=== PATIENT | male | born 1930 | race Caucasian/White ===

== ENCOUNTER 2018-01-17 09:52 | Emergency (ER) | payer MEDICARE ==
--- NOTE | 2018-01-17 12:17 | UC ---
Back Pain HPI - HPI Summary HPI Summary: 87 y/o male presents to the urgent care accompany by daughter c/o tail bone pain for the past year. Pt has Hx back surgery discectomy many years ago at vertebra L3-L4. He also has falling several times last years w/o any major problem. However he feel lower back is worsen specially when stand up or walks. Pain is 8/10 w/o any radiation today. He took an Advil PO about 1 hrs ago to alleviate symptoms. Pt denies fever, urinary symptoms, saddle anesthesia, urinary or fecal incontinence, numbness or tingling sensation over the lower extremities, SOB, palpitation, chest pain, abdominal pain, N/V/D. - History of Current Complaint Chief Complaint: UCBackPain Stated Complaint: LOWER BACK PAIN Time Seen by Provider: 01/17/18 12:15 Hx Obtained From: Patient, Family/[employer]aste[employer] Manager - daughter Onset/Duration: Gradual Onset, Lasting Weeks - 1 year, Still Present, Worse Since - last month Timing: Intermittent, Lasting Seconds Severity Initially: Mild Severity Currently: Moderate Pain Intensity: 8 Pain Scale Used: 0-10 Numeric Back Pain: Is Discrete @ - lower back Character: Dull, Spasmodic Aggravating Factor(s): Movement, Lifting, Bending, Walking Alleviating Factor(s): Rest, OTC Meds Associated Signs And Symptoms: Positive: Negative. Negative: Fever, Weakness, Numbness, Tingling, Abdominal Pain, Flank Pain, Bladder Incontinence, Bowel Incontinence, Weight Loss, Pain with Weight Bearing - Risk Factors AAA Risk Factors: Negative TAD Risk Factors: Negative Epidural Abscess Risk Factors: Negative - Allergies/Home Medications Allergies/Adverse Reactions: Allergies Allergy/AdvReac Type Severity Reaction Status Date / Time Penicillins Allergy Unknown Verified 01/17/18 12:15 Reaction Details Home Medications: Home Medications Allopurinol [Zyloprim 300 MG TAB] 300 mg PO DAILY 01/17/18 [History Confirmed ] Bisacodyl [Correctol] 5 mg PO DAILY 01/17/18 [History Confirmed 01/17/18] Finasteride [Proscar] 5 mg PO DAILY 01/17/18 [History Confirmed 01/17/18] Pantoprazole Sodium [Protonix] 40 mg PO DAILY 01/17/18 [History Confirmed ] Tamsulosin CAP* [Flomax CAP*] 0.4 mg PO DAILY 01/17/18 [History Confirmed ] Torsemide 10 mg PO DAILY 01/17/18 [History Confirmed 01/17/18] Venlafaxine CAP (NF) [Effexor CAP (NF)] 75 mg PO DAILY 01/17/18 [History Confirmed 01/17/18] PMH/Surg Hx/FS Hx/Imm Hx Previously Healthy: Yes Other Endocrine History: GOUT Cardiovascular History: Hypertension Other GI/ History: BPH - Surgical History Surgical History: Yes Surgery Procedure, Year, and Place: RIGHT LEG AMPUTATION. LUMBAR 3-4 DISCECTOMY. KIDNEY STONES X2 - Family History Known Family History: Positive: Hypertension, Diabetes - Social History Occupation: Retired Lives: With Family Alcohol Use: None Substance Use Type: None Smoking Status (MU): Former Smoker Have You Smoked in the Last Year: No Review of Systems Constitutional: Negative Skin: Negative Eyes: Negative ENT: Negative Respiratory: Negative Cardiovascular: Negative Gastrointestinal: Negative Genitourinary: Negative Motor: Negative Neurovascular: Negative Musculoskeletal: Decreased ROM - lower back, Other: - acute lower back pain and tailbone pain Neurological: Negative Psychological: Negative Is Patient Immunocompromised?: No All Other Systems Reviewed And Are Negative: Yes Physical Exam - Summary Physical Exam Summary: Vital Signs Reviewed: Yes Appearance: Well-Appearing, Well-Nourished, obese old male sitting in the wheel chair w/o any apparent distress. Eyes: Positive: Conjunctiva Clear - PERRLA, EOMI. ENT: Positive: Normal ENT inspection, Hearing grossly normal, Pharynx normal, TMs normal, Uvula midline Neck: Positive: Supple, Nontender, No Lymphadenopathy Respiratory: Positive: Chest non-tender, Lungs clear, Normal breath sounds, No respiratory distress Cardiovascular: Positive: RRR, No Murmur, Pulses Normal, Brisk Capillary Refill Abdomen Description: Positive: Nontender, No Organomegaly, Soft. Negative: CVA Tenderness (R), CVA Tenderness (L) Bowel Sounds: Positive: Present Musculoskeletal: Positive: Strength Intact, BACK: Patient can stand up and walk some step w/ help. Pt able to bear weight. No signs of trauma, No masses palpated. back scar at the level of L3-S1. Point tenderness at the level of L5- S1, No CVAT, no flank ecchymosis . No sacroiliac notch or coccyx tenderness on palpation, No saddle anesthesia.ROM: limited due to pain, Straight Leg Raise: positive. Patellar reflexes: brisk, symmetric Muscle strength lower extremities. No calf tenderness. Dorsiflexion/ plantar flexion of ankles. Lower extremities: Femoral, popliteal, posterior tibial, and dorsalis pedis pulses WNL. Pt refuse rectal exam Neurological: Positive: Alert, Muscle Tone Normal Psychological Exam: Normal Skin Exam: Normal Triage Information Reviewed: Yes Vital Signs: Initial Vital Signs Temp 97.8 F 01/17/18 12:08 Pulse 69 01/17/18 12:08 Resp 18 01/17/18 12:08 BP 128/65 01/17/18 12:08 Pulse Ox 98 01/17/18 12:08 Back Pain Course/Dx - Course Course Of Treatment: 87 y/o male presents to the urgent care accompany by daughter c/o tail bone pain for the past year. Pt has Hx back surgery discectomy many years ago at vertebra L3-L4. He also has falling several times last years w/o any major problem. However he feel lower back is worsen specially when stand up or walks. Pain is 8/10 w/o any radiation today. He took an Advil PO about 1 hrs ago to alleviate symptoms. Pt denies fever, urinary symptoms, saddle anesthesia, urinary or fecal incontinence, numbness or tingling sensation over the lower extremities, SOB, palpitation, chest pain, abdominal pain, N/V/D. Hx obtained.Lumbosacral X-ray ordered, Impression: Osteopenia, mild compression L2-L3 and T12 vertebra which is age intertermine. Multiple degenerative disc disease observed. Pt's symptoms discussed w/ DR Zhang since I think Pt may need a Lumbat CT. Dr Zhang there is not need for CT since Pt is asymptomatic. he reocommended Pain medication F/u w/ Orthopedic or Neurosurgeon for further evaluation and Tx. Pt and Daughter expalined and educated on Pt's X-ray results and the need for further work up. Pt Rx Prednisone PO take dose, and [place] PO. Patient was instructed to the f/u with orthopedic DR Mazariegos or Neurosurgeon Dr Caceres in 2-3 days. Daughter and Patient understands and agrees. All questions were answered at patient satisfaction. Pt left clinic hemodynamically stable. - Differential Dx/Diagnosis Differential Diagnosis/HQI/PQRI: Cauda Equina Syndrome, Compressive Cord Syndrome, Renal Colic, Strain, Sprain Provider Diagnoses: 1- Acute lower back pain. 2- Mild Vertebral compressure of L3-L2 and T12. 3- Degenerative disc disease Discharge - Sign-Out/Discharge Documenting (check all that apply): Discharge/Admit/Transfer - D/C home - Discharge Plan Condition: Stable Disposition: HOME Prescriptions: HYDROcodone/ACETAMIN 5-325 MG* [[place] 5-325 TAB*] 1 tab PO Q6H PRN #12 tab MDD 1g/4g/day PRN Reason: Pain predniSONE TAB* [Deltasone 20 MG TAB*] 20 mg PO DAILY #11 tab Patient Education Materials: Vertebral Compression Fracture (ED), Back Pain (ED ), Degenerative Disc Disease (ED) Referrals: Simeon Mazariegos MD [Medical Doctor] - 2 Days Alida Sow MD [Primary Care Provider] - 2 Days Savannah Caceres MD [Medical Doctor] - 1 Week Additional Instructions: 1- Please take [place] PO as directed after meals for pain. 2- Take Prednisone PO as directed to alleviate inflammation. 3- Please buy a floating donut for cushion to alleviate tailbone pain.. Pleas encourage fall precautions measures.. 4- Please follow up with your PCP for further pain management and treatment. F/U w/ DR Mazariegos or Neurosurgeon DR Landers for further management on compression fracture. - Billing Disposition and Condition Condition: STABLE Disposition: Home
--- NOTE | 2018-01-17 12:58 | RAD ---
Indication: Low back pain. Fall. 5 views of lumbar spine demonstrates osteopenia. There is mild compression of the L3, L2 vertebra as well as the T12 vertebra. Age of this is undetermined. Disc space narrowing at L3-L4, L4-L5 and L5-S1 with osteophyte formation. IMPRESSION: Osteopenia. Mild compression of the L3, L2 and T12 vertebra age of which is undetermined. Multilevel degenerative disc disease is noted.
== END 2018-01-17 13:29 | disposition home or self-care (01) ==
LOC: UCCORT 09:52
DX: M53.86 Other specified dorsopathies, lumbar region (principal); M51.36 Other intervertebral disc degeneration, lumbar region; M85.88 Other specified disorders of bone density and structure, other site; Z88.0 Allergy status to penicillin; Z98.890 Other specified postprocedural states; Z89.611 Acquired absence of right leg above knee; Z87.442 Personal history of urinary calculi; Z87.891 Personal history of nicotine dependence
CPT/HCPCS: 72110; 99202; G0463